=== PATIENT | male | born 1970 | race Caucasian/White ===

== ENCOUNTER 2019-11-07 02:49 | Observation (INO) ==
[2019-11-07] MEDS ORDERED: Naloxone 0.4 MG/ML INJ IVP PRN (07:55)
[2019-11-07] MEDS ORDERED: Ondansetron ODT 4 MG TAB.RAPDIS SL PRN (07:55)
[2019-11-07] MEDS ORDERED: *HR* LORazepam 2 MG/ML VIAL IVP PRN ×3 (07:55)
[2019-11-07] MEDS ORDERED: Thiamine (B-1) 100 MG, Folic Acid 1 MG, MVI, adult with vitamin K 10 ML in 0.9 % Sodi... IVPB ONE (10:00)
[2019-11-07] MEDS: Thiamine (B-1) 100 MG TABLET PO SCH (12:00)
[2019-11-07] MEDS: Vitamin B Complex/Vit C/Vit E 1 EACH TABLET PO SCH (12:00)
[2019-11-07] MEDS: Folic Acid 1 MG TABLET PO SCH (12:00)
[2019-11-07] MEDS: Nicotine 14 MG PATCH.TD24 TD SCH (12:00)
[2019-11-08 07:00] VITALS: BP 136/83
[2019-11-08] MEDS: Thiamine (B-1) 100 MG TABLET PO SCH (08:20)
[2019-11-08] MEDS: Vitamin B Complex/Vit C/Vit E 1 EACH TABLET PO SCH (08:20)
[2019-11-08] MEDS: Nicotine 14 MG PATCH.TD24 TD SCH (08:20)
[2019-11-08] MEDS: Folic Acid 1 MG TABLET PO SCH (08:20)
[2019-11-08 08:47] LABS: Basophils # 0.1 K/mcL (0.0-0.2); Basophils % 0.9 %; Eosinophils # 0.2 K/mcL (0.0-0.6); Hematocrit 44.4 % (37.5-50.1); Hemoglobin 15.8 g/dL (12.9-16.9); Immature Granulocytes % 0.5 % (0-4); Lymphocytes # 1.2 K/mcL (0.6-4.6); Lymphocytes % 15.3 %; Mean Corpuscular HGB Conc 35.6 g/dL (31.6-35.5); Mean Corpuscular Hemoglobin 33.3 pg (28.0-33.3); Mean Corpuscular Volume 93.5 fL (83.0-100.0); Mean Platelet Volume 8.8 fL (9.4-12.4); Monocytes % 12.2 %; Neutrophils # 5.3 K/mcL (1.6-8.9); Platelet Count 185 K/mcL (140-400); Red Blood Count 4.75 M/mcL (4.19-5.50); Red Cell Distribution Width 13.1 % (11.5-14.5); Segmented Neutrophils % 68.1 %; White Blood Count 7.8 K/mcL (4.3-11.1)
[2019-11-08 08:54] LABS: INR 1.2
[2019-11-08 09:08] LABS: Alanine Aminotransferase 18 Units/L (7-52); Albumin 4.2 g/dL (3.5-5.7); Albumin/Globulin Ratio 1.4 (1.1-2.2); Alkaline Phosphatase 89 Units/L (34-104); Aspartate Amino Transferase 17 Units/L (13-39); Bilirubin,Total 0.8 mg/dL (0.3-1.0); Blood Urea Nitrogen 7 mg/dL (6-20); Calcium 9.2 mg/dL (8.6-10.3); Carbon Dioxide 25 mEq/L (23-29); Chloride 96 mEq/L (98-107); Chol/HDL Ratio 2.3 (0-4.9); Cholesterol 82 mg/dL (< 200); Glucose 115 mg/dL (70-105); HDL Cholesterol 35 mg/dL (40-59); LDL Cholesterol,Calculated 37 mg/dL (0-99); Magnesium 1.8 mg/dL (1.6-2.6); Osmolality,Calculated 271 (280-300); Phosphorous 3.2 mg/dL (2.7-4.5); Potassium 4.3 mEq/L (3.5-5.1); Sodium 131 mEq/L (136-145); Total Protein 7.2 g/dL (6.4-8.9); Triglycerides 49 mg/dL (< 150)
[2019-11-08 09:36] LABS: BUN/Creatinine Ratio 15 (6-26); eGFR For African Americans > 60 (> 60); eGFR For Non-African Americans > 60 (> 60)
[2019-11-08 09:39] LABS: Estimated Average Glucose 111 mg/dl
== END 2019-11-08 09:30 | disposition home or self-care (01) ==
LOC: 3ANU → SUATTDRO 04:18
PROVIDERS: ADMIT Internal Medicine; ATTEND Internal Medicine

== ENCOUNTER 2020-02-07 19:58 | Inpatient (IN) ==
[2020-02-07] MEDS ORDERED: 0.9 % Sodium Chloride 1,000 ML IVC ONE (20:30)
[2020-02-07] MEDS ORDERED: *HR* LORazepam 2 MG/ML VIAL IVP ONE (20:36)
[2020-02-07 20:49] LABS: Basophils # 0.1 K/mcL (0.0-0.2); Basophils % 0.6 %; Eosinophils # 0.1 K/mcL (0.0-0.6); Eosinophils % 1.1 %; Hematocrit 45.2 % (37.5-50.1); Hemoglobin 15.9 g/dL (12.9-16.9); Immature Granulocytes % 1.8 % (0-4); Lymphocytes # 0.9 K/mcL (0.6-4.6); Lymphocytes % 8.7 %; Mean Corpuscular HGB Conc 35.2 g/dL (31.6-35.5); Mean Corpuscular Hemoglobin 32.7 pg (28.0-33.3); Mean Platelet Volume 8.9 fL (9.4-12.4); Monocytes % 18.5 %; Neutrophils # 6.9 K/mcL (1.6-8.9); Platelet Count 280 K/mcL (140-400); Red Blood Count 4.86 M/mcL (4.19-5.50); Red Cell Distribution Width 12.3 % (11.5-14.5); Segmented Neutrophils % 69.3 %
[2020-02-07 20:52] LABS: Monocytes # 1.9 K/mcL (0.0-1.3)
[2020-02-07 20:58] LABS: Bilirubin,Urine Moderate (Negative); Blood,Urine Negative (Negative); Clarity,Urine Cloudy (Clear); Color,Urine Yellow (Yellow); Glucose,Urine (UA) Normal (Normal); Ketones,Urine Trace mg/dL (Negative); Leukocyte Esterase,Urine Negative (Negative); Nitrite,Urine Negative (Negative); Protein,Urine Negative (Neg-Trace); Specific Gravity,Urine 1.021 (1.010-1.025); Urobilinogen,Urine Normal (Normal)
[2020-02-07 21:00] LABS: Bacteria,Urine None Seen per hpf (None-Few); Squamous Epithelial Cell,Urine Many per lpf (None-Few)
[2020-02-07 21:08] LABS: Albumin 4.1 g/dL (3.5-5.7); Albumin/Globulin Ratio 1.2 (1.1-2.2); Bilirubin,Direct 0.1 mg/dL (0.0-0.2); Bilirubin,Indirect 0.4 mg/dL (0.0-1.0); Bilirubin,Total 0.5 mg/dL (0.3-1.0); Calcium 9.5 mg/dL (8.6-10.3); Globulin 3.5 g/dL (2.4-3.5); Potassium 3.6 mEq/L (3.5-5.1); Total Protein 7.6 g/dL (6.4-8.9)
[2020-02-07 21:13] LABS: Hyaline Casts,Urine Moderate per lpf (None-Few)
[2020-02-07] MEDS ORDERED: Metoclopramide 10 MG/2 ML VIAL IVP ONE (21:42)
[2020-02-07] MEDS ORDERED: Tetracaine/Benzocaine/Butamben 1 SPRAY AEROSOL MM ONE (21:49)
[2020-02-07] MEDS ORDERED: *HR* LORazepam 2 MG/ML VIAL IVP PRN ×3 (23:16)
[2020-02-07] MEDS ORDERED: Thiamine (B-1) 100 MG, Folic Acid 1 MG, MVI, adult with vitamin K 10 ML in 0.9 % Sodi... IVPB SCH (23:18)
[2020-02-08] MEDS ORDERED: Naloxone 0.4 MG/ML INJ IVP PRN (00:56)
[2020-02-08 02:27] LABS: Calcium 8.9 mg/dL (8.6-10.3); Potassium 3.5 mEq/L (3.5-5.1)
[2020-02-08 06:16] LABS: Potassium 3.6 mEq/L (3.5-5.1)
[2020-02-08 11:06] LABS: Potassium 3.4 mEq/L (3.5-5.1)
[2020-02-08 12:10] LABS: Uric Acid 18.1 mg/dL (2.3-7.6)
[2020-02-08] MEDS: 0.9 % Sodium Chloride 1,000 ML IVC SCH ×2 (14:34→23:00)
[2020-02-08 14:47] LABS: Calcium 8.9 mg/dL (8.6-10.3); Potassium 3.3 mEq/L (3.5-5.1)
[2020-02-08] MEDS ORDERED: *HR* LORazepam 2 MG/ML VIAL IVP ONE (21:16)
[2020-02-09] MEDS ORDERED: *HR* LORazepam 2 MG/ML VIAL IVP ONE ×2 (02:52→23:27)
[2020-02-09 05:06] LABS: Basophils # 0.1 K/mcL (0.0-0.2); Basophils % 0.7 %; Eosinophils # 0.1 K/mcL (0.0-0.6); Eosinophils % 0.9 %; Hematocrit 41.2 % (37.5-50.1); Hemoglobin 14.4 g/dL (12.9-16.9); Immature Granulocytes % 1.2 % (0-4); Lymphocytes # 0.7 K/mcL (0.6-4.6); Lymphocytes % 6.3 %; Mean Corpuscular Hemoglobin 33.6 pg (28.0-33.3); Mean Corpuscular Volume 96.3 fL (83.0-100.0); Mean Platelet Volume 9.1 fL (9.4-12.4); Monocytes # 1.8 K/mcL (0.0-1.3); Monocytes % 17.2 %; Neutrophils # 7.9 K/mcL (1.6-8.9); Platelet Count 250 K/mcL (140-400); Red Blood Count 4.28 M/mcL (4.19-5.50); Red Cell Distribution Width 12.5 % (11.5-14.5); Segmented Neutrophils % 73.7 %; White Blood Count 10.7 K/mcL (4.3-11.1)
[2020-02-09 05:31] LABS: Calcium 8.3 mg/dL (8.6-10.3); Phosphorous 6.6 mg/dL (2.7-4.5)
[2020-02-09 05:43] LABS: Thyroid Stimulating Hormone 0.636 mcIU/mL (0.340-5.600)
[2020-02-09] MEDS: 0.9 % Sodium Chloride 1,000 ML IVC SCH (09:12)
[2020-02-09] MEDS ORDERED: 0.9 % Sodium Chloride 1,000 ML IV ONE (10:50)
[2020-02-09 11:35] LABS: Uric Acid 18.9 mg/dL (2.3-7.6)
[2020-02-09] MEDS: Thiamine (B-1) 100 MG, Folic Acid 1 MG in 0.9 % Sodium Chloride 50 ML IVPB SCH (16:17)
[2020-02-10 04:35] LABS: Basophils # 0.1 K/mcL (0.0-0.2); Basophils % 0.7 %; Eosinophils # 0.1 K/mcL (0.0-0.6); Eosinophils % 0.8 %; Hematocrit 44.6 % (37.5-50.1); Immature Granulocytes % 1.3 % (0-4); Lymphocytes # 1.1 K/mcL (0.6-4.6); Lymphocytes % 7.9 %; Mean Corpuscular HGB Conc 33.6 g/dL (31.6-35.5); Mean Corpuscular Hemoglobin 33.2 pg (28.0-33.3); Mean Corpuscular Volume 98.7 fL (83.0-100.0); Mean Platelet Volume 9.2 fL (9.4-12.4); Monocytes % 13.9 %; Neutrophils # 10.7 K/mcL (1.6-8.9); Platelet Count 307 K/mcL (140-400); Red Blood Count 4.52 M/mcL (4.19-5.50); Red Cell Distribution Width 12.8 % (11.5-14.5); Segmented Neutrophils % 75.4 %; White Blood Count 14.1 K/mcL (4.3-11.1)
[2020-02-10 04:58] LABS: Phosphorous 5.6 mg/dL (2.7-4.5); Uric Acid 21.4 mg/dL (2.3-7.6)
[2020-02-10 04:59] LABS: Calcium 9.1 mg/dL (8.6-10.3); Potassium 3.1 mEq/L (3.5-5.1)
[2020-02-10] MEDS: 0.9 % Sodium Chloride 1,000 ML IVC SCH ×3 (05:40→20:07)
[2020-02-10] MEDS ORDERED: 0.9 % Sodium Chloride w KCl 40 MEQ/1,000 ML MLS IVC SCH (08:00)
[2020-02-10] MEDS ORDERED: SODIUM CHLORIDE 0.9% IV ONE (12:30)
[2020-02-10] MEDS ORDERED: RASBURICASE IV ONE (12:30)
[2020-02-10] MEDS ORDERED: 0.9 % Sodium Chloride 1,000 ML IV ONE (13:02)
[2020-02-10] MEDS: Thiamine (B-1) 100 MG, Folic Acid 1 MG in 0.9 % Sodium Chloride 50 ML IVPB SCH (16:06)
[2020-02-10] MEDS: 0.9 % Sodium Chloride w KCl 40 MEQ/1,000 ML MLS IVC SCH ×2 (16:16→23:21)
[2020-02-10] MEDS: Melatonin 3 MG TABLET PO PRN (23:21)
[2020-02-11 01:30] LABS: Basophils # 0.1 K/mcL (0.0-0.2); Basophils % 1.3 %; Eosinophils # 0.3 K/mcL (0.0-0.6); Eosinophils % 2.8 %; Hematocrit 41.5 % (37.5-50.1); Hemoglobin 13.7 g/dL (12.9-16.9); Lymphocytes # 1.3 K/mcL (0.6-4.6); Lymphocytes % 12.6 %; Mean Corpuscular Hemoglobin 33.3 pg (28.0-33.3); Mean Platelet Volume 9.1 fL (9.4-12.4); Monocytes # 1.3 K/mcL (0.0-1.3); Monocytes % 12.7 %; Platelet Count 300 K/mcL (140-400); Red Blood Count 4.11 M/mcL (4.19-5.50); Red Cell Distribution Width 12.5 % (11.5-14.5); Segmented Neutrophils % 67.6 %; White Blood Count 10.4 K/mcL (4.3-11.1)
[2020-02-11 01:50] LABS: BUN/Creatinine Ratio 70 (6-26); Blood Urea Nitrogen 45 mg/dL (6-20); Calcium 8.5 mg/dL (8.6-10.3); Carbon Dioxide 33 mEq/L (23-29); Chloride 100 mEq/L (98-107); Glucose 138 mg/dL (70-105); Osmolality,Calculated 304 (280-300); Potassium 3.3 mEq/L (3.5-5.1); Sodium 140 mEq/L (136-145); Uric Acid < 1.5 mg/dL (2.3-7.6); eGFR For African Americans > 60 (> 60); eGFR For Non-African Americans > 60 (> 60)
[2020-02-11] MEDS: 0.9 % Sodium Chloride w KCl 40 MEQ/1,000 ML MLS IVC SCH ×4 (06:44→23:43)
[2020-02-11] MEDS: Thiamine (B-1) 100 MG, Folic Acid 1 MG in 0.9 % Sodium Chloride 50 ML IVPB SCH (15:17)
[2020-02-11] MEDS: Melatonin 3 MG TABLET PO PRN (23:43)
[2020-02-12 05:20] LABS: Basophils # 0.2 K/mcL (0.0-0.2); Basophils % 1.4 %; Eosinophils # 0.5 K/mcL (0.0-0.6); Eosinophils % 3.8 %; Hematocrit 42.7 % (37.5-50.1); Hemoglobin 13.8 g/dL (12.9-16.9); Immature Granulocytes % 3.8 % (0-4); Lymphocytes # 1.7 K/mcL (0.6-4.6); Lymphocytes % 13.3 %; Mean Corpuscular HGB Conc 32.3 g/dL (31.6-35.5); Mean Corpuscular Hemoglobin 33.2 pg (28.0-33.3); Mean Corpuscular Volume 102.6 fL (83.0-100.0); Monocytes # 1.5 K/mcL (0.0-1.3); Monocytes % 11.8 %; Neutrophils # 8.4 K/mcL (1.6-8.9); Platelet Count 287 K/mcL (140-400); Red Blood Count 4.16 M/mcL (4.19-5.50); Red Cell Distribution Width 12.3 % (11.5-14.5); Segmented Neutrophils % 65.9 %; White Blood Count 12.7 K/mcL (4.3-11.1)
[2020-02-12] MEDS: 0.9 % Sodium Chloride w KCl 40 MEQ/1,000 ML MLS IVC SCH ×2 (05:39→06:27)
[2020-02-12 05:40] LABS: BUN/Creatinine Ratio 29 (6-26); Blood Urea Nitrogen 13 mg/dL (6-20); Calcium 8.6 mg/dL (8.6-10.3); Carbon Dioxide 24 mEq/L (23-29); Chloride 107 mEq/L (98-107); Glucose 103 mg/dL (70-105); Osmolality,Calculated 286 (280-300); Potassium 4.9 mEq/L (3.5-5.1); Sodium 138 mEq/L (136-145); Uric Acid < 1.5 mg/dL (2.3-7.6); eGFR For African Americans > 60 (> 60); eGFR For Non-African Americans > 60 (> 60)
[2020-02-12 06:48] VITALS: BP 156/94
[2020-02-12] MEDS ORDERED: amLODIPine 5 MG TABLET PO SCH (09:00)
== END 2020-02-12 11:08 | disposition home or self-care (01) | DRG 389 ==
LOC: EMEROOARM 19:58 → 3ANU 19:58 → SUATTDRO 02-09 12:35
PROVIDERS: ADMIT Family Medicine; ATTEND Internal Medicine